=== PATIENT | female | born 1975 | race Caucasian/White ===

== ENCOUNTER 2017-01-02 10:39 | Emergency (ER) | payer BC ==
[~2017-01-02] VITALS: Ht 172.7 cm; Wt 57.0 kg
[2017-01-02 11:06] VITALS: BP 150/59; PULSE 49; RESP 19; TEMP 97.7; O2SAT 99
[2017-01-02] MEDS ORDERED: ONDANSETRON HCL 4 MG/2 ML VIAL ONE (11:09)
--- NOTE | 2017-01-02 11:12 | PD ---
HPI Chief Complaint: GI Complaint Time Seen by Provider: 11:12 Travel History International Travel<30 days: No Contact w/Intl Traveler<30days: No Traveled to known affect area: No History of Present Illness HPI 41-year-old female presents the emergency department with sudden onset intractable vomiting and generalized abdominal pain since 2:00 this morning. Patient has no chronic medical problems and takes no medications. She has no history of abdominal surgeries in the past. She states her has a vasectomy so she does not feel that she is . Patient has had sweats but denies specific fever. Patient was brought in by ambulance and given 500 mL's normal saline bolus as well as 4 mg Zofran with some improvement. Patient states her pain is 8/10 currently and cramping. Patient has had some urinary irritation but no specific flank tenderness or discharge. Patient denies upper respiratory symptoms or cough or chest pain. She denies shortness of breath. Patient ate at the same restaurant her last night and he is fine. She has no exposure history to the flu. Patient is visiting from out of town. She is allergic to morphine. [facility] Social History Alcohol Use: Yes Tobacco Use: Yes Substance Use: No Allergies-Medications (Allergen,Severity, Reaction): Coded Allergies: Morphine (Verified Allergy, Intermediate, AGITATION, 01/02/17) Reported Meds & Prescriptions Reported Meds & Active Scripts Active No Active Prescriptions or Reported Medications Review of Systems Except as stated in HPI: all other systems reviewed are Neg General / Constitutional: No: Fever Eyes: No: Visual changes HENT: No: Headaches, Lightheadedness, Sore Throat, Rhinitis, Rhinorrhea, Congestion, Nosebleed, Neck Stiffness, Neck Pain, Ear Discharge, Earache Cardiovascular: No: Chest Pain or Discomfort Respiratory: No: Cough, Shortness of Breath, Wheezing Gastrointestinal: Positive: Nausea, Vomiting, Abdominal Pain, Loss of Appetite , No: Diarrhea, Constipation Genitourinary: Positive: Dysuria Musculoskeletal: No: Pain Skin: No Rash Neurologic: No: Weakness Psychiatric: No: Depression Endocrine: No: Polydipsia Hematologic/Lymphatic: No: Easy Bruising Physical Exam Narrative GENERAL: Patient appears in moderate distress. SKIN: Warm and dry. Normal color. Normal turgor. No diaphoresis. HEAD: Atraumatic. Normocephalic. EYES: Pupils equal and round. No scleral icterus. No injection or drainage. ENT: No nasal bleeding or discharge. Mucous membranes pink and moist. Pharynx is clear. NECK: Trachea midline. Supple and nontender. CARDIOVASCULAR: Bradycardic rate at 48 bpm and normal rhythm. RESPIRATORY: No accessory muscle use. Clear to auscultation. Breath sounds equal bilaterally. GASTROINTESTINAL: Abdomen soft, moderate generalized tenderness without specific point tenderness or rebound. Nondistended. Hepatic and splenic margins not palpable. No CVA tenderness. MUSCULOSKELETAL: Extremities without clubbing, cyanosis, or edema. No obvious deformities. NEUROLOGICAL: Awake and alert. No obvious cranial nerve deficits. Motor grossly within normal limits. Five out of 5 muscle strength in the arms and legs. Normal speech. PSYCHIATRIC: Appropriate mood and affect; insight and judgment normal. Data Data Last Documented VS Vital Signs Date Time Temp Pulse Resp B/P Pulse Ox O2 Delivery O2 Flow Rate FiO2 01/02/17 14:34 48 16 131/67 99 Room Air 01/02/17 11:06 97.7 Orders Ondansetron Inj (Zofran Inj) (01/02/17 11:09) Complete Blood Count With Diff (01/02/17 11:16) Comprehensive Metabolic Panel (01/02/17 11:16) Lipase (01/02/17 11:16) Lactic Acid (01/02/17 11:16) Prothrombin Time / Inr (Pt) (01/02/17 11:16) Act Partial Throm Time (Ptt) (01/02/17 11:16) Urinalysis - C+S If Indicated (01/02/17 11:16) Ct Abd/Pel W Iv Contrast(Rout) (01/02/17 11:16) Iv Access Insert/Monitor (01/02/17 11:16) Ecg Monitoring (01/02/17 11:16) Oximetry (01/02/17 11:16) NPO (01/02/17 11:16) Ondansetron Inj (Zofran Inj) (01/02/17 11:30) Sodium Chlor 0.9% 1000 Ml Inj (Ns 1000 M (01/02/17 11:16) Sodium Chloride 0.9% Flush (Ns Flush) (01/02/17 11:30) Electrocardiogram (01/02/17 11:16) Dicyclomine Inj (Bentyl Inj) (01/02/17 11:30) Ketorolac Inj (Toradol Inj) (01/02/17 11:30) Hydromorphone Pf Inj (Dilaudid Pf Inj) (01/02/17 11:30) Ed Urine Pregnancytest Poc (01/02/17 11:16) Chest, Single Ap (01/02/17 11:16) Influenzae A/B Antigen (01/02/17 11:16) Oral Contrast - Adult (01/02/17 11:20) Prochlorperazine Inj (Compazine Inj) (01/02/17 11:30) Diphenhydramine Inj (Benadryl Inj) (01/02/17 11:30) Diatrizoate Liq ( Gastroview Liq) (01/02/17 12:11) Beta Hcg (Quant/Titer) (01/02/17 13:34) Iohexol 350 Inj (Omnipaque 350 Inj) (01/02/17 14:14) Labs Laboratory Tests Test 01/02/17 01/02/17 01/02/17 11:30 12:38 13:45 Lactic Acid Level 1.5 mmol/L White Blood Count 11.7 TH/MM3 Red Blood Count 4.35 MIL/MM3 Hemoglobin 13.0 GM/DL Hematocrit 39.7 % Mean Corpuscular Volume 91.1 FL Mean Corpuscular Hemoglobin 30.0 PG Mean Corpuscular Hemoglobin 32.9 % Concent Red Cell Distribution Width 12.9 % Platelet Count 191 TH/MM3 Mean Platelet Volume 9.3 FL Neutrophils (%) (Auto) 95.3 % Lymphocytes (%) (Auto) 2.2 % Monocytes (%) (Auto) 2.2 % Eosinophils (%) (Auto) 0.0 % Basophils (%) (Auto) 0.3 % Neutrophils # (Auto) 11.1 TH/MM3 Lymphocytes # (Auto) 0.3 TH/MM3 Monocytes # (Auto) 0.3 TH/MM3 Eosinophils # (Auto) 0.0 TH/MM3 Basophils # (Auto) 0.0 TH/MM3 CBC Comment DIFF FINAL Differential Comment Prothrombin Time 11.3 SEC Prothromb Time International 1.0 RATIO Ratio Activated Partial 24.3 SEC Thromboplast Time Sodium Level 144 MEQ/L Potassium Level 4.1 MEQ/L Chloride Level 114 MEQ/L Carbon Dioxide Level 21.2 MEQ/L Anion Gap 9 MEQ/L Blood Urea Nitrogen 13 MG/DL Creatinine 0.67 MG/DL Estimat Glomerular Filtration 96 ML/MIN Rate Random Glucose 148 MG/DL Calcium Level 7.9 MG/DL Total Bilirubin 0.6 MG/DL Aspartate Amino Transf 18 U/L (AST/SGOT) Alanine Aminotransferase 20 U/L (ALT/SGPT) Alkaline Phosphatase 36 U/L Total Protein 6.6 GM/DL Albumin 3.8 GM/DL Lipase 134 U/L Human Chorionic Gonadotropin, LESS THAN 1 Quant MIU/ML Urine Color YELLOW Urine Turbidity CLEAR Urine pH 5.5 Urine Specific [place] 1.019 Urine Protein TRACE mg/dL Urine Glucose (UA) 150 mg/dL Urine Ketones 150 mg/dL Urine Occult Blood TRACE Urine Nitrite NEG Urine Bilirubin NEG Urine Urobilinogen LESS THAN 2.0 MG/DL Urine Leukocyte Esterase SMALL Urine RBC 1 /hpf Urine WBC 2 /hpf Urine Squamous Epithelial 4 /hpf Cells Urine Bacteria RARE /hpf Urine Mucus FEW /lpf Microscopic Urinalysis Comment CULT NOT INDICATED MDM Medical Decision Making Medical Screen Exam Complete: Yes Emergency Medical Condition: Yes Differential Diagnosis Acute gastroenteritis. Influenza. Diverticulitis. Appendicitis. Gallbladder disease. Ileus. Narrative Course Patient is medically stable at time of exam. Labs ordered including CBC, CMP, lactic acid, lipase, urinalysis, rapid influenza and serum hCG. EKGs and chest x-ray is ordered. IV access is obtained patient is given 1 mg Dilaudid IV. Patient is given thousand milligrams normal saline bolus. Patient has received a total of 8 mg Zofran IV from EMS and here, and continues to have dry heaves. Patient is given Compazine 25 mg IM. Patient is given 50 mg Benadryl IV. Abdominal CT is ordered with IV and oral contrast. EKG shows sinus rhythm with sinus arrhythmia with a ventricular rate of 67 beats per minute. Chest x-ray shows no acute process. Rapid influenza is negative. CBC has a slight leukocytosis of 11.7 with 95.3% neutrophils. Chemistry shows normal sodium and potassium. Random glucose is 148. BUN/ creatinine are normal. Alkaline phosphatase is actually somewhat low at 36. An lipase is normal at 134. Coagulation studies are normal. CT scan shows no acute process per radiologist. Patient felt stable to be discharged home. Patient is given Zofran 4 mg one every 6 hours when necessary nausea. Patient is given ibuprofen 600 mg 4 times a day when necessary #40. Patient is to rest and push fluids and follow-up with her primary care physician as needed. Patient can return the emergency Department with worsening symptoms as needed. Diagnosis Primary Impression: Nausea and vomiting Qualified Code: R11.2 - Non-intractable vomiting with nausea, unspecified vomiting type Additional Impression: Abdominal pain Qualified Code: R10.84 - Generalized abdominal pain Referrals: Primary Care Physician Patient Instructions: Acute Nausea and Vomiting (ED), Gastroenteritis (ED), General Instructions Additional Instructions: EKG shows sinus rhythm with sinus arrhythmia with a ventricular rate of 67 beats per minute. Chest x-ray shows no acute process. Rapid influenza is negative. CBC has a slight leukocytosis of 11.7 with 95.3% neutrophils. Chemistry shows normal sodium and potassium. Random glucose is 148. BUN/ creatinine are normal. Alkaline phosphatase is actually somewhat low at 36. An lipase is normal at 134. Coagulation studies are normal. CT scan shows no acute process per radiologist. Patient felt stable to be discharged home. Patient is given Zofran 4 mg one every 6 hours when necessary nausea. Patient is given ibuprofen 600 mg 4 times a day when necessary #40. Patient is to rest and push fluids and follow-up with her primary care physician as needed. Patient can return the emergency Department with worsening symptoms as needed. Med/Other Pt SpecificInfo: Prescription(s) given Scripts No Active Prescriptions or Reported Meds Disposition: 01 DISCHARGE HOME Condition: Stable Alverto Jung Jan 02, 2017 11:12
[2017-01-02] MEDS ORDERED: SODIUM CHLOR 0.9% 1000 ML INJ 1,000 ML IV SCH (11:16)
[2017-01-02 11:17] VITALS: BP 150/59; PULSE 50; RESP 19; O2SAT 100
[2017-01-02] MEDS ORDERED: ONDANSETRON HCL 4 MG/2 ML VIAL IVP ONE (11:30)
[2017-01-02] MEDS ORDERED: HYDROmorphone HCL PF 1 MG/ML VIAL IVS ONE (11:30)
[2017-01-02] MEDS ORDERED: KETOROLAC TROMETHAMINE 30 MG/ML (IVP) VIAL IVP ONE (11:30)
[2017-01-02] MEDS ORDERED: DICYCLOMINE HCL 20 MG/2 ML VIAL IM ONE (11:30)
[2017-01-02] MEDS ORDERED: SODIUM CHLORIDE 0.9% FLUSH 10 ML FLUSH IV FLUSH PRN (11:30)
[2017-01-02] MEDS ORDERED: diphenhydrAMINE HCL 50 MG/ML VIAL IV PUSH ONE (11:30)
[2017-01-02] MEDS ORDERED: PROCHLORPERAZINE INJ 10 MG/2 ML VIAL IM ONE (11:30)
[2017-01-02] MEDS ORDERED: DIATRIZOATE MEGLUM/DIATRIZOATE SOD 9 ML CUP ONE (12:11)
--- NOTE | 2017-01-02 12:19 | RADRPT ---
EXAM DATE/TIME: 01/02/2017 12:06 [facility] COMPARISON: No previous studies available for comparison. INDICATIONS : Fever and vomiting. MEDICAL HISTORY : None. SURGICAL HISTORY : None. ENCOUNTER: Initial ACUITY: 1 day PAIN SCORE: 0/10 LOCATION: Bilateral chest FINDINGS: A single view of the chest demonstrates the lungs to be symmetrically aerated without evidence of mas s, infiltrate or effusion. The cardiomediastinal contours are unremarkable. Osseous structures are intact. CONCLUSION: No acute cardiopulmonary process. Durga Vinson MD on January 02, 2017 at 12:18 Board Certified Radiologist. This report was verified electronically.
[2017-01-02 13:08] LABS: AUTOMATED NEUTROPHIL # 11.1 TH/MM3 (1.8-7.7); BASOPHIL % 0.3 % (0.0-2.0); HEMATOCRIT 39.7 % (35.0-46.0); HEMO FLAGS DIFF FINAL; LYMPH % 2.2 % (9.0-44.0); LYMPHOCYTE # 0.3 TH/MM3 (1.0-4.8); MEAN CELL VOLUME 91.1 FL (80.0-100.0); MEAN CORPUSCULAR HGB CONC 32.9 % (32.0-36.0); MONO % 2.2 % (0.0-8.0); NEUT % 95.3 % (16.0-70.0); PLATELET COUNT 191 TH/MM3 (150-450); RED BLOOD COUNT 4.35 MIL/MM3 (4.00-5.30); RED CELL DISTRIBUTION WIDTH 12.9 % (11.6-17.2); WHITE BLOOD COUNT 11.7 TH/MM3 (4.0-11.0)
[2017-01-02 13:21] LABS: APTT (PATIENT) 24.3 SEC (24.3-30.1); PROTHROMBIN TIME - PATIENT 11.3 SEC (9.8-11.6)
[2017-01-02 13:26] LABS: ALT (GPT) 20 U/L (10-53); ANION GAP 9 MEQ/L (5-15); AST (GOT) 18 U/L (15-37); BICARBONATE 21.2 MEQ/L (21.0-32.0); BLOOD UREA NITROGEN 13 MG/DL (7-18); CHLORIDE 114 MEQ/L (98-107); GLOMERULAR FILTRATION RATE 96 ML/MIN (>89); SODIUM (NA) 144 MEQ/L (136-145)
[2017-01-02 13:28] LABS: ALKALINE PHOSPHATASE 36 U/L (45-117); TOTAL BILIRUBIN ADULT 0.6 MG/DL (0.2-1.0)
[2017-01-02 13:31] LABS: POTASSIUM 4.1 MEQ/L (3.5-5.1)
[2017-01-02 14:10] LABS: BACTERIA, URINE RARE /hpf; BLOOD, URINE TRACE (NEG); COMMENT (UR) CULT NOT INDICATED; CULTURE IF INDICATED CULT NOT INDICATED; GLUCOSE,URINE 150 mg/dL (NEG); KETONE, URINE 150 mg/dL (NEG); MUCUS URINE FEW /lpf (OCC); NITRITE,URINE NEG (NEG); PH, URINE 5.5 (5.0-8.5); SQUAMOUS EPITHELIAL CELL URINE 4 /hpf (0-5); URINE COLOR YELLOW (YELLW/STRAW)
[2017-01-02] MEDS ORDERED: IOHEXOL 350 MG/ML 10 ML VIAL (for RAD DIAG) IV ONE (14:14)
[2017-01-02 14:34] VITALS: BP 131/67; PULSE 48; RESP 16; O2SAT 99
[2017-01-02 15:20] LABS: BETA HCG QUANT LESS THAN 1 MIU/ML (0-5)
--- NOTE | 2017-01-02 15:29 | RADRPT ---
EXAM DATE/TIME: 01/02/2017 14:10 [facility] COMPARISON: No previous studies available for comparison. INDICATIONS : Diffuse abdominal pain with weakness and vomiting. IV CONTRAST: 100 cc Omnipaque 350 (iohexol) IV ORAL CONTRAST: Prescribed oral contrast ingested. RADIATION DOSE: 4.54 CTDIvol (mGy) MEDICAL HISTORY : None SURGICAL HISTORY : None. ENCOUNTER: Initial ACUITY: 1 day PAIN SCALE: 4/10 LOCATION: Abdomen/pelvis TECHNIQUE: Volumetric scanning of the abdomen and pelvis was performed. Using automated exposure control and ad justment of the mA and/or kV according to patient size, radiation dose was kept as low as reasonably achievable to obtain optimal diagnostic quality images. FINDINGS: LOWER LUNGS: The visualized lower lungs are clear. LIVER: Homogeneous density without lesion. There is no dilation of the biliary tree. No calcified gallston es. SPLEEN: Normal size without lesion. PANCREAS: Within normal limits. KIDNEYS: Normal in size and shape. There is no mass, stone or hydronephrosis. ADRENAL GLANDS: Within normal limits. VASCULAR: There is no aortic aneurysm. Incidental circumaortic left renal vein BOWEL/MESENTERY: The stomach, small bowel, and colon demonstrate no acute abnormality. There is no free intraperitone al air or fluid. ABDOMINAL WALL: Within normal limits. RETROPERITONEUM: There is no lymphadenopathy. BLADDER: No wall thickening or mass. REPRODUCTIVE: Small volume of probable physiologic free fluid in the cul-de-sac. Slightly less than 2 cm collapsing left ovarian cyst or an INGUINAL: There is no lymphadenopathy or hernia. MUSCULOSKELETAL: Within normal limits for patient age. CONCLUSION: Physiologic findings in the pelvis. Otherwise negative Ayaz Laboy MD on January 02, 2017 at 15:14 Board Certified Radiologist. This report was verified electronically.
[2017-01-02] MEDS ORDERED: ZOFR4TAB3 SL (15:39)
[2017-01-02] MEDS ORDERED: IBUP-232 PO (15:39)
[2017-01-02] MEDS ORDERED: ONDANSETRON HCL 4 MG/2 ML VIAL IV PUSH ONE (15:45)
--- NOTE | 2017-01-02 16:03 | PD ---
Data Data Last Documented VS Vital Signs Date Time Temp Pulse Resp B/P Pulse Ox O2 Delivery O2 Flow Rate FiO2 01/02/17 14:34 48 16 131/67 99 Room Air 01/02/17 11:06 97.7 Orders Ondansetron Inj (Zofran Inj) (01/02/17 11:09) Complete Blood Count With Diff (01/02/17 11:16) Comprehensive Metabolic Panel (01/02/17 11:16) Lipase (01/02/17 11:16) Lactic Acid (01/02/17 11:16) Prothrombin Time / Inr (Pt) (01/02/17 11:16) Act Partial Throm Time (Ptt) (01/02/17 11:16) Urinalysis - C+S If Indicated (01/02/17 11:16) Ct Abd/Pel W Iv Contrast(Rout) (01/02/17 11:16) Iv Access Insert/Monitor (01/02/17 11:16) Ecg Monitoring (01/02/17 11:16) Oximetry (01/02/17 11:16) NPO (01/02/17 11:16) Ondansetron Inj (Zofran Inj) (01/02/17 11:30) Sodium Chlor 0.9% 1000 Ml Inj (Ns 1000 M (01/02/17 11:16) Sodium Chloride 0.9% Flush (Ns Flush) (01/02/17 11:30) Electrocardiogram (01/02/17 11:16) Dicyclomine Inj (Bentyl Inj) (01/02/17 11:30) Ketorolac Inj (Toradol Inj) (01/02/17 11:30) Hydromorphone Pf Inj (Dilaudid Pf Inj) (01/02/17 11:30) Ed Urine Pregnancytest Poc (01/02/17 11:16) Chest, Single Ap (01/02/17 11:16) Influenzae A/B Antigen (01/02/17 11:16) Oral Contrast - Adult (01/02/17 11:20) Prochlorperazine Inj (Compazine Inj) (01/02/17 11:30) Diphenhydramine Inj (Benadryl Inj) (01/02/17 11:30) Diatrizoate Liq ( Gastroview Liq) (01/02/17 12:11) Beta Hcg (Quant/Titer) (01/02/17 13:34) Iohexol 350 Inj (Omnipaque 350 Inj) (01/02/17 14:14) Ondansetron Inj (Zofran Inj) (01/02/17 15:45) Labs Laboratory Tests Test 01/02/17 01/02/17 01/02/17 11:30 12:38 13:45 Lactic Acid Level 1.5 mmol/L White Blood Count 11.7 TH/MM3 Red Blood Count 4.35 MIL/MM3 Hemoglobin 13.0 GM/DL Hematocrit 39.7 % Mean Corpuscular Volume 91.1 FL Mean Corpuscular Hemoglobin 30.0 PG Mean Corpuscular Hemoglobin 32.9 % Concent Red Cell Distribution Width 12.9 % Platelet Count 191 TH/MM3 Mean Platelet Volume 9.3 FL Neutrophils (%) (Auto) 95.3 % Lymphocytes (%) (Auto) 2.2 % Monocytes (%) (Auto) 2.2 % Eosinophils (%) (Auto) 0.0 % Basophils (%) (Auto) 0.3 % Neutrophils # (Auto) 11.1 TH/MM3 Lymphocytes # (Auto) 0.3 TH/MM3 Monocytes # (Auto) 0.3 TH/MM3 Eosinophils # (Auto) 0.0 TH/MM3 Basophils # (Auto) 0.0 TH/MM3 CBC Comment DIFF FINAL Differential Comment Prothrombin Time 11.3 SEC Prothromb Time International 1.0 RATIO Ratio Activated Partial 24.3 SEC Thromboplast Time Sodium Level 144 MEQ/L Potassium Level 4.1 MEQ/L Chloride Level 114 MEQ/L Carbon Dioxide Level 21.2 MEQ/L Anion Gap 9 MEQ/L Blood Urea Nitrogen 13 MG/DL Creatinine 0.67 MG/DL Estimat Glomerular Filtration 96 ML/MIN Rate Random Glucose 148 MG/DL Calcium Level 7.9 MG/DL Total Bilirubin 0.6 MG/DL Aspartate Amino Transf 18 U/L (AST/SGOT) Alanine Aminotransferase 20 U/L (ALT/SGPT) Alkaline Phosphatase 36 U/L Total Protein 6.6 GM/DL Albumin 3.8 GM/DL Lipase 134 U/L Human Chorionic Gonadotropin, LESS THAN 1 Quant MIU/ML Urine Color YELLOW Urine Turbidity CLEAR Urine pH 5.5 Urine Specific [place] 1.019 Urine Protein TRACE mg/dL Urine Glucose (UA) 150 mg/dL Urine Ketones 150 mg/dL Urine Occult Blood TRACE Urine Nitrite NEG Urine Bilirubin NEG Urine Urobilinogen LESS THAN 2.0 MG/DL Urine Leukocyte Esterase SMALL Urine RBC 1 /hpf Urine WBC 2 /hpf Urine Squamous Epithelial 4 /hpf Cells Urine Bacteria RARE /hpf Urine Mucus FEW /lpf Microscopic Urinalysis Comment CULT NOT INDICATED MDM Supervised Visit with TANIA: Yes Narrative Course The history, exam, and medical decision-making in the associated mid-level provider note were completed with my assistance. I reviewed and agree with the findings presented. I attest that I had a [id number] encounter with the patient on the same day, and personally performed and documented my assessment and findings in the medical record. *My assessment and Findings: 40 year-old woman nausea vomiting and some watery diarrhea starting today. States she's had similar symptoms with the abdominal pain and vomiting with the onset of her menstrual cycle the past. She has some mild lower abdominal tenderness. She otherwise looks generally well. Labs are unremarkable. CT is unremarkable. Recommend supportive treatment. Diagnosis Primary Impression: Nausea and vomiting Qualified Code: R11.2 - Non-intractable vomiting with nausea, unspecified vomiting type Additional Impression: Abdominal pain Qualified Code: R10.84 - Generalized abdominal pain Referrals: Primary Care Physician Patient Instructions: General Instructions, Gastroenteritis (ED), Acute Nausea and Vomiting (ED) Additional Instruction: EKG shows sinus rhythm with sinus arrhythmia with a ventricular rate of 67 beats per minute. Chest x-ray shows no acute process. Rapid influenza is negative. CBC has a slight leukocytosis of 11.7 with 95.3% neutrophils. Chemistry shows normal sodium and potassium. Random glucose is 148. BUN/ creatinine are normal. Alkaline phosphatase is actually somewhat low at 36. An lipase is normal at 134. Coagulation studies are normal. CT scan shows no acute process per radiologist. Patient felt stable to be discharged home. Patient is given Zofran 4 mg one every 6 hours when necessary nausea. Patient is given ibuprofen 600 mg 4 times a day when necessary #40. Patient is to rest and push fluids and follow-up with her primary care physician as needed. Patient can return the emergency Department with worsening symptoms as needed. Scripts Ondansetron Odt (Zofran Odt)4 Mg Tab4 Mg SL Q6HR PRN (Nausea/Vomiting) #15 TAB Prov:Yao Rai MD 01/02/17 Ibuprofen 600 Mg [id number] Mg PO Q6H PRN (Pain/Inflammation) #40 TAB Prov:Yao Rai MD 01/02/17 Disposition: 01 DISCHARGE HOME Condition: Stable Yao Rai MD Jan 02, 2017 16:03
--- NOTE | 2017-01-04 11:25 | EKG ---
Date Performed: 01/02/2017 Time Performed: 12:03:44 PTAGE: 41 years EKG: Sinus rhythm NORMAL ECG NO PREVIOUS TRACING DOCTOR: Tierney Aguayo Interpretating Date/Time 01/04/2017 11:23:03
== END 2017-01-02 16:55 | disposition home or self-care (01) ==
LOC: NEPE 10:39
DX: R11.2 Nausea with vomiting, unspecified (principal); R10.84 Generalized abdominal pain; R19.7 Diarrhea, unspecified; I49.8 Other specified cardiac arrhythmias
CPT/HCPCS: 71010; 74177; 80053; 81001; 83605; 83690; 84702; 84703; 85025; 85610; 85730; 87804; 93005; 96361; 96372; 96374; 96375; 99285; J0500; J0780; J1170; J1200; J1885; J2405; J7030; Q9963; Q9967